=== PATIENT | male | born 1970 | race Caucasian/White ===

== ENCOUNTER 2019-04-28 12:26 | Inpatient (IN) | payer BC ==
[2019-04-28] MEDS ORDERED: Ketorolac 30 MG/ML SDV IVPUSH ONE (12:36)
[2019-04-28] MEDS ORDERED: Ondansetron 4 MG/2 ML SDV IVPUSH ONE (12:36)
[2019-04-28] MEDS: Sodium Chloride 0.9% 1,000 ML IV ONE ×2 (12:45→15:54)
[2019-04-28] MEDS ORDERED: Dicyclomine 10 MG Cap PO ONE (12:53)
--- NOTE | 2019-04-28 12:53 | EDM.PDOC ---
ED HPI GENERAL MEDICAL PROBLEM - General Chief Complaint: Gastrointestinal Problem Stated Complaint: VOMITING Time Seen by Provider: 04/28/19 12:28 Source of Information: Reports: Patient History Limitations: Reports: No Limitations - History of Present Illness INITIAL COMMENTS - FREE TEXT/NARRATIVE: HISTORY AND PHYSICAL: History of present illness: Patient is a 48-year-old male presents to the ED today with concern of generalized abdominal pain, diarrhea, and vomiting since last night. Patient states he's been awake all night with vomiting and diarrhea. Patient states he has an episode of either vomiting or diarrhea every 10-15 minutes and his diarrhea is watery. Patient states he's began to notice a small amount of blood in his diarrhea. Patient states he did eat at a potluck last night was over 100 people but does not know of any other ill contacts. Patient denies any health history or any other symptoms or concerns. Patient has a history of appendectomy but denies any other abdominal surgeries. Patient denies fever, chills, chest pain, shortness of breath, or cough. Denies headache, neck stiff ness, change in vision, syncope, or near syncope. Denies dysuria. Has not noted any blood in urine. Review of systems: As per history of present illness and below otherwise all systems reviewed and negative. Past medical history: As per history of present illness and as reviewed below otherwise noncontributory. Surgical history: As per history of present illness and as reviewed below otherwise noncontributory. Social history: See social history for further information Family history: As per history of present illness and as reviewed below otherwise noncontributory. Physical exam: General: Patient is alert, oriented, and in no acute distress. Patient laying comfortably on exam table. HEENT: Atraumatic, normocephalic, pupils equal and reactive bilaterally, negative for conjunctival pallor or scleral icterus, mucous membranes dry, TMs normal bilaterally, throat clear, neck supple, nontender, trachea midline. No drooling or trismus noted. No meningeal signs. No hot potato voice noted. Lungs: Clear to auscultation, breath sounds equal bilaterally, chest nontender. Heart: S1S2, regular rate and rhythm without overt murmur Abdomen: Soft, nondistended. Generalized mild-moderate discomfort with palpation of the abdomen. Negative for masses or hepatosplenomegaly. Negative for costovertebral tenderness. Pelvis: Stable nontender. Genitourinary: Deferred. Rectal: Deferred. Skin: Intact, warm, dry. No lesions or rashes noted. Extremities: Atraumatic, negative for cords or calf pain. Neurovascular unremarkable. Neuro: Awake, alert, oriented. Cranial nerves II through XII unremarkable. Cerebellum unremarkable. Motor and sensory unremarkable throughout. Exam nonfocal. Notes: Dr. Lowry, hospitalist, consulted on patient and will admit to inpatient. Voices understanding and is agreeable to plan of care. Denies any further questions or concerns at this time. Diagnostics: CBC, CMP, UA, lipase, stool study, although and parasite, C. difficile, abd/ pelvic CT Therapeutics: Saline, Zofran, Toradol, Bentyl Impression: Colitis Plan: Admit to inpatient to Dr. Lowry. Definitive disposition and diagnosis as appropriate pending reevaluation and review of above. Abdomen Pain Score (Numeric/FACES): 7 - Related Data Allergies Allergy/AdvReac Type Severity Reaction Status Date / Time No Known Allergies Allergy Verified 04/28/19 12:39 Home Meds: Home Meds . [No Known Home Meds] 04/28/19 [History] Past Medical History - Infectious Disease History Infectious Disease History: Reports: Chicken Pox - Past Surgical History GI Surgical History: Reports: Appendectomy Social & Family History - Family History Family Medical History: Noncontributory - Tobacco Use Smoking Status *Q: Never Smoker - Recreational Drug Use Recreational Drug Use: No ED ROS GENERAL - Review of Systems Review Of Systems: Comprehensive ROS is negative, except as noted in HPI. ED EXAM, GENERAL - Physical Exam Exam: See Below (see dictation) Course - Vital Signs Last Recorded V/S: Last Vital Signs Temp 97.2 F 04/28/19 12:37 Pulse 67 04/28/19 12:37 Resp 18 04/28/19 12:37 BP 139/77 04/28/19 12:37 Pulse Ox 96 04/28/19 12:37 - Orders/Labs/Meds Orders: Active Orders 24 hr Category Date Time Status Admission Status [Patient Status] [ADT] Stat ADT 04/28/19 14:41 Ordered Hemoccult [Fecal Occult Blood Collection] [RC] Care 04/28/19 12:41 Active ASDIRECTED C DIFFICILE AG/TOXIN W/REFLEX [RM] Stat Lab 04/28/19 12:36 Ordered CULTURE STOOL + CAMPY+SHIGATOX [RM] Stat Lab 04/28/19 12:36 Ordered OVA & PARASITES BY IMMUNOASSAY [MREF] Stat Lab 04/28/19 12:36 Ordered Ciprofloxacin in D5W [Cipro in D5W 400 MG/200 ML] 400 Med 04/28/19 14:32 Ordered mg Premix Bag 1 bag IV NOW metroNIDAZOLE/Normal Saline [Flagyl 500 MG in NS 100 ML Med 04/28/19 14:32 Ordered ] 500 mg Premix Bag 1 bag IV ONETIME Medication Orders Ciprofloxacin/Dextrose 400 mg/ (Premix) 200 mls @ 200 mls/hr IV NOW STA Stop: 04/28/19 15:31 Metronidazole 500 mg/ Premix 100 mls @ 100 mls/hr IV ONETIME ONE Stop: 04/28/19 15:31 Labs: Laboratory Tests 04/28/19 04/28/19 04/28/19 Range/Units 12:40 12:40 13:50 WBC 22.11 H (4.0-11.0) K/uL RBC 5.83 (4.50-5.90) M/uL Hgb 17.6 H (13.0-17.0) g/dL Hct 49.3 (38.0-50.0) % MCV 84.6 (80.0-98.0) fL MCH 30.2 (27.0-32.0) pg MCHC 35.7 (31.0-37.0) g/dL RDW Std Deviation 41.3 (28.0-62.0) fl RDW Coeff of Jose 14 (11.0-15.0) % Plt Count 219 (150-400) K/uL MPV 12.00 (7.40-12.00) fL Neut % (Auto) 89.5 H (48.0-80.0) % Lymph % (Auto) 6.7 L (16.0-40.0) % [place] % (Auto) 3.8 (0.0-15.0) % Eos % (Auto) 0.0 (0.0-7.0) % Baso % (Auto) 0.0 (0.0-1.5) % Neut # (Auto) 19.8 H (1.4-5.7) K/uL Lymph # (Auto) 1.5 (0.6-2.4) K/uL [place] # (Auto) 0.9 H (0.0-0.8) K/uL Eos # (Auto) 0.0 (0.0-0.7) K/uL Baso # (Auto) 0.0 (0.0-0.1) K/uL Nucleated RBC % 0.0 /100WBC Nucleated RBCs # 0 K/uL Sodium 139 (136-148) mmol/L Potassium 3.5 (3.5-5.1) mmol/L Chloride 102 (98-107) mmol/L Carbon Dioxide 25.1 (21.0-32.0) mmol/L BUN 13 (7.0-18.0) mg/dL Creatinine 1.0 (0.8-1.3) mg/dL Est Cr Clr Drug Dosing 94.29 mL/min Estimated GFR (MDRD) > 60.0 ml/min Glucose 148 H (74-106) mg/dL Calcium 9.5 (8.5-10.1) mg/dL Total Bilirubin 1.3 H (0.2-1.0) mg/dL AST 37 (15-37) IU/L ALT 76 H (14-63) IU/L Alkaline Phosphatase 78 (46-116) U/L Total Protein 8.0 (6.4-8.2) g/dL Albumin 4.1 (3.4-5.0) g/dL Globulin 3.9 (2.6-4.0) g/dL Albumin/Globulin Ratio 1.1 (0.9-1.6) Lipase 223 (73-393) U/L Urine Color DARK YELLOW Urine Appearance CLEAR Urine pH 5.5 (5.0-8.0) Ur Specific [place] >= 1.030 (1.001-1.035) Urine Protein NEGATIVE (NEGATIVE) mg/dL Urine Glucose (UA) NEGATIVE (NEGATIVE) mg/dL Urine Ketones 15 H (NEGATIVE) mg/dL Urine Occult Blood NEGATIVE (NEGATIVE) Urine Nitrite NEGATIVE (NEGATIVE) Urine Bilirubin NEGATIVE (NEGATIVE) Urine Urobilinogen 0.2 (<2.0) EU/dL Ur Leukocyte Esterase NEGATIVE (NEGATIVE) Meds: Medications Generic Name Dose Route Start Last Admin Trade Name Freq PRN Reason Stop Dose Admin Ciprofloxacin/Dextrose 400 mg/ 200 mls @ 200 mls/hr 04/28/19 14:32 Premix IV 04/28/19 15:31 NOW STA Metronidazole 500 mg/ Premix 100 mls @ 100 mls/hr 04/28/19 14:32 IV 04/28/19 15:31 ONETIME ONE Discontinued Medications Generic Name Dose Route Start Last Admin Trade Name Roberta PRN Reason Stop Dose Admin Dicyclomine HCl 10 mg 04/28/19 12:53 04/28/19 12:56 Bentyl PO 04/28/19 12:54 10 mg ONETIME ONE Administration Sodium Chloride 1,000 mls @ 999 mls/hr 04/28/19 12:36 04/28/19 12:45 Normal Saline IV 04/28/19 13:36 999 mls/hr STAT ONE Administration Ketorolac Tromethamine 30 mg 04/28/19 12:36 04/28/19 12:50 Toradol IVPUSH 04/28/19 12:37 30 mg ONETIME ONE Administration Ondansetron HCl 4 mg 04/28/19 12:36 04/28/19 12:50 Zofran IVPUSH 04/28/19 12:37 4 mg ONETIME ONE Administration Departure - Departure Time of Disposition: 14:42 Disposition: Admitted As Inpatient 67 Clinical Impression: Colitis - Discharge Information Referrals: PCP,None [Primary Care Provider] - Forms: ED Department Discharge - My Orders Last 24 Hours: My Active Orders 04/28/19 12:36 C DIFFICILE AG/TOXIN W/REFLEX [RM] Stat CULTURE STOOL + CAMPY+SHIGATOX [RM] Stat OVA & PARASITES BY IMMUNOASSAY [MREF] Stat 04/28/19 12:41 Hemoccult [Fecal Occult Blood Collection] [RC] ASDIRECTED 04/28/19 14:32 Ciprofloxacin in D5W [Cipro in D5W 400 MG/200 ML] 400 mg Premix Bag 1 bag IV NOW metroNIDAZOLE/Normal Saline [Flagyl 500 MG in NS 100 ML] 500 mg Premix Bag 1 bag IV ONETIME 04/28/19 14:41 Admission Status [Patient Status] [ADT] Stat - Assessment/Plan Last 24 Hours: My Active Orders 04/28/19 12:36 C DIFFICILE AG/TOXIN W/REFLEX [RM] Stat CULTURE STOOL + CAMPY+SHIGATOX [RM] Stat OVA & PARASITES BY IMMUNOASSAY [MREF] Stat 04/28/19 12:41 Hemoccult [Fecal Occult Blood Collection] [RC] ASDIRECTED 04/28/19 14:32 Ciprofloxacin in D5W [Cipro in D5W 400 MG/200 ML] 400 mg Premix Bag 1 bag IV NOW metroNIDAZOLE/Normal Saline [Flagyl 500 MG in NS 100 ML] 500 mg Premix Bag 1 bag IV ONETIME 04/28/19 14:41 Admission Status [Patient Status] [ADT] Stat
[2019-04-28 13:25] LABS: BLOOD UREA NITROGEN,BUN 13 mg/dL (7.0-18.0); CARBON DIOXIDE,CO2 25.1 mmol/L (21.0-32.0); CHLORIDE,CL 102 mmol/L (98-107); GLUCOSE RANDOM 148 mg/dL (74-106); LIPASE 223 U/L (73-393); POTASSIUM,K 3.5 mmol/L (3.5-5.1); SODIUM,NA 139 mmol/L (136-148)
--- NOTE | 2019-04-28 14:29 | CT ---
EXAM DATE: 04/28/19 PATIENT'S AGE: 48 CT abdomen and pelvis Technique: Multiple axial sections were obtained from above the dome of the diaphragm inferiorly through the pubic symphysis. Intravenous contrast was utilized. No oral contrast is present. Comparison: No prior abdominal imaging is available. Findings: Visualized lung bases show nothing acute. Fatty infiltration is seen throughout the liver. No focal abnormality is appreciated within the liver. Spleen appears within normal limits. Adrenal glands show no nodule. Pancreas appears within normal limits. Gallbladder contains no calcified gallstones. Kidneys show symmetric contrast enhancement without hydronephrosis or mass. Aorta shows no aneurysm. No retroperitoneal adenopathy is seen. Appendix not visualized. Surgical material is seen next to the cecum. No pelvic mass or adenopathy is seen. No free fluid or inflammatory change. There is some bowel wall thickening within the right colon and transverse colon compatible with a nonspecific colitis. Bone window settings were reviewed which shows mild compression deformities within the thoracic spine which is felt to be developmental. Minimal scattered degenerative change is seen within the spine. Impression: 1. Bowel wall thickening within portions of the transverse and right colon compatible with a nonspecific colitis. 2. Other findings as noted above which are felt to be nonacute and incidental. Diagnostic code #3 Report Signed by Proxy. SHEILA
[2019-04-28] MEDS ORDERED: metroNIDAZOLE/Normal Saline 500 MG in Premix Bag 1 BAG IV ONE (14:32)
[2019-04-28] MEDS ORDERED: Ciprofloxacin in D5W 400 MG in Premix Bag 1 BAG IV STA ×2 (14:32)
[2019-04-28] MEDS ORDERED: Morphine 2 MG/ML Syringe IVPUSH PRN (15:21)
[2019-04-28] MEDS ORDERED: Sodium Chloride 0.9% 1,000 ML IV SCH ×2 (15:30→16:30)
--- NOTE | 2019-04-28 15:34 | PCM.HP.2 ---
H&P History of Present Illness - General Date of Service: 04/28/19 Admit Problem/Dx: Admission Diagnosis/Problem Admission Diagnosis/Problem Colitis Source of Information: Patient History Limitations: Reports: No Limitations - History of Present Illness Initial Comments - Free Text/Narative: This 48 year old male with little significant pmh presented to the ED today with complaints of sudden abdominal pain, N/V, and diarrhea. he reports last evening he suddenly started having diffuse abdominal cramping, N/V and diarrhea. He reports the pain is not located to one spot, it is all over. It comes on suddenly lasts for 1 minute or so then settles down. He reports the pain is sharp and constant for that minute. He reports his stools are very watery with some noteable ignacio blood, but in very small amounts. Maybe a little mucous noted. He reports emesis is note only bile. He attempted to drink some tea this morning, but threw that up right away. He is not voiding much and it is very dark. He reports he ate at [employer] the other day and then last night he was with family at a gathering with a potluck style food. His sister, in the room with him, denies knowing of anyone else that is sick. No recent travel outside of the and no recent antibiotic use. He reports fevers and chills overnight. no chest pain or SOB. No headache, sinus congestion or neck pain. He denies any other medical history, No HTN, CAD or DM. He reports history of gastric ulcer as a child and appendectomy. He denies smoking or tobacco use, social alcohol use only and no recreational drug use. In the ED leukocytosis noted at 22,110, hgb 17.6 and Hct 49.6. UA negative. BMP ok, bilirubin 1.3, PRO093 AST [address] of abdomen revealed bowel thickening in the right colon and transverse colon consistent with non-specific colitis. he was treated with NS bolus in the ED along with Ciprofloxacin and Flagyl. He was also given Zofran and Bentyl. He will be admitted inpatient for colitis, dehydration and abdominal pain. Abdomen Pain Score (Numeric/FACES): 7 - Related Data Allergies/Adverse Reactions: Allergies Allergy/AdvReac Type Severity Reaction Status Date / Time No Known Allergies Allergy Verified 04/28/19 12:39 Home Medications: Home Meds . [No Known Home Meds] 04/28/19 [History] Past Medical History Cardiovascular History: Reports: None. Denies: Afib, CAD, Hypertension, ID Respiratory History: Reports: None. Denies: Asthma, COPD Gastrointestinal History: Reports: Other (See Below) (gastric ulcer as a child.) Genitourinary History: Reports: None. Denies: Chronic Renal Insuffiency Musculoskeletal History: Reports: None Psychiatric History: Reports: None Endocrine/Metabolic History: Reports: Obesity/BMI 30+ Oncologic (Cancer) History: Reports: None - Infectious Disease History Infectious Disease History: Reports: Chicken Pox - Past Surgical History GI Surgical History: Reports: Appendectomy Social & Family History - Family History Family Medical History: Noncontributory - Tobacco Use Smoking Status *Q: Never Smoker - Alcohol Use Alcohol Use Frequency: Socially - Recreational Drug Use Recreational Drug Use: No - Living Situation & Occupation Occupation: Employed H&P Review of Systems - Review of Systems: Review Of Systems: See Below General: Reports: Fever, Chills, Malaise, Fatigue HEENT: Reports: No Symptoms. Denies: Ear Pain, Headaches, Sinus Congestion, Vertigo Pulmonary: Reports: No Symptoms. Denies: Shortness of Breath Cardiovascular: Reports: No Symptoms. Denies: Chest Pain Gastrointestinal: Reports: Abdominal Pain, Bloody Stool, Diarrhea, Decreased Appetite, Nausea, Vomiting. Denies: Black Stool, Distension Genitourinary: Reports: No Symptoms. Denies: Dysuria, Frequency, Burning Musculoskeletal: Reports: No Symptoms Skin: Reports: No Symptoms Psychiatric: Reports: No Symptoms Neurological: Reports: No Symptoms Hematologic/Lymphatic: Reports: No Symptoms Immunologic: Reports: No Symptoms Exam - Exam Exam: See Below - Vital Signs Vital Signs: Last Vital Signs Temp 97.2 F 04/28/19 12:37 Pulse 71 04/28/19 14:53 Resp 18 04/28/19 14:53 BP 92/49 L 04/28/19 14:53 Pulse Ox 97 04/28/19 14:53 Weight: 115.666 kg - Exam General: Alert, Oriented, Cooperative HEENT: Conjunctiva Clear, Posterior Pharynx Clear. No: Mucosa Moist & [place] (dry ) Neck: Supple, Trachea Midline Lungs: Clear to Auscultation, Normal Respiratory Effort Cardiovascular: Regular Rate, Regular Rhythm GI/Abdominal Exam: Normal Bowel Sounds, Soft, Tender (scant tenderness diffusely , no localized pain.) Back Exam: Normal Inspection, Full Range of Motion Extremities: Normal Inspection, Normal Range of Motion, Non-Tender, No Pedal Edema Neuro Extensive - Mental Status: Alert, Oriented x3 Neuro Extensive - Motor, Sensory, Reflexes: CN II-XII Intact Psychiatric: Alert, Normal Affect, Normal Mood - Patient Data Lab Results Last 24 hrs: Laboratory Results - last 24 hr 04/28/19 04/28/19 04/28/19 Range/Units 12:40 12:40 13:50 WBC 22.11 H (4.0-11.0) K/uL RBC 5.83 (4.50-5.90) M/uL Hgb 17.6 H (13.0-17.0) g/dL Hct 49.3 (38.0-50.0) % MCV 84.6 (80.0-98.0) fL MCH 30.2 (27.0-32.0) pg MCHC 35.7 (31.0-37.0) g/dL RDW Std Deviation 41.3 (28.0-62.0) fl RDW Coeff of Jose 14 (11.0-15.0) % Plt Count 219 (150-400) K/uL MPV 12.00 (7.40-12.00) fL Neut % (Auto) 89.5 H (48.0-80.0) % Lymph % (Auto) 6.7 L (16.0-40.0) % [place] % (Auto) 3.8 (0.0-15.0) % Eos % (Auto) 0.0 (0.0-7.0) % Baso % (Auto) 0.0 (0.0-1.5) % Neut # (Auto) 19.8 H (1.4-5.7) K/uL Lymph # (Auto) 1.5 (0.6-2.4) K/uL [place] # (Auto) 0.9 H (0.0-0.8) K/uL Eos # (Auto) 0.0 (0.0-0.7) K/uL Baso # (Auto) 0.0 (0.0-0.1) K/uL Nucleated RBC % 0.0 /100WBC Nucleated RBCs # 0 K/uL Sodium 139 (136-148) mmol/L Potassium 3.5 (3.5-5.1) mmol/L Chloride 102 (98-107) mmol/L Carbon Dioxide 25.1 (21.0-32.0) mmol/L BUN 13 (7.0-18.0) mg/dL Creatinine 1.0 (0.8-1.3) mg/dL Est Cr Clr Drug Dosing 94.29 mL/min Estimated GFR (MDRD) > 60.0 ml/min Glucose 148 H (74-106) mg/dL Calcium 9.5 (8.5-10.1) mg/dL Total Bilirubin 1.3 H (0.2-1.0) mg/dL AST 37 (15-37) IU/L ALT 76 H (14-63) IU/L Alkaline Phosphatase 78 (46-116) U/L Total Protein 8.0 (6.4-8.2) g/dL Albumin 4.1 (3.4-5.0) g/dL Globulin 3.9 (2.6-4.0) g/dL Albumin/Globulin Ratio 1.1 (0.9-1.6) Lipase 223 (73-393) U/L Urine Color DARK YELLOW Urine Appearance CLEAR Urine pH 5.5 (5.0-8.0) Ur Specific [place] >= 1.030 (1.001-1.035) Urine Protein NEGATIVE (NEGATIVE) mg/dL Urine Glucose (UA) NEGATIVE (NEGATIVE) mg/dL Urine Ketones 15 H (NEGATIVE) mg/dL Urine Occult Blood NEGATIVE (NEGATIVE) Urine Nitrite NEGATIVE (NEGATIVE) Urine Bilirubin NEGATIVE (NEGATIVE) Urine Urobilinogen 0.2 (<2.0) EU/dL Ur Leukocyte Esterase NEGATIVE (NEGATIVE) Result Diagrams: 04/28/19 12:40 04/28/19 12:40 *Q Meaningful Use (ADM) - VTE *Q VTE Pharmacological Contraindications *Q: Risk of Bleeding - Problem List (1) Colitis SNOMED Code(s): 29712153 ICD Code: K52.9 - NONINFECTIVE GASTROENTERITIS AND COLITIS, UNSPECIFIED Status: Acute Current Visit: Yes (2) Dehydration SNOMED Code(s): 53886358 ICD Code: E86.0 - DEHYDRATION Status: Acute Current Visit: Yes (3) Abdominal pain SNOMED Code(s): 54769998 ICD Code: R10.9 - UNSPECIFIED ABDOMINAL PAIN Status: Acute Current Visit : Yes Qualifiers: Abdominal location: generalized Qualified Code(s): R10.84 - Generalized abdominal pain Problem List Initiated/Reviewed/Updated: Yes Orders Last 24hrs: Active Orders 24 hr Category Date Time Status Admission Status [Patient Status] [ADT] Stat ADT 04/28/19 14:41 Active Antiembolic Devices [RC] PER UNIT ROUTINE Care 04/28/19 15:22 Ordered Height and Weight [RC] DAILY Care 04/28/19 15:21 Ordered Hemoccult [Fecal Occult Blood Collection] [RC] Care 04/28/19 12:41 Active ASDIRECTED Oxygen Therapy [RC] PRN Care 04/28/19 15:22 Ordered Up With Assistance [RC] ASDIRECTED Care 04/28/19 15:21 Ordered VTE/DVT Education [RC] PER UNIT ROUTINE Care 04/28/19 15:22 Ordered Vital Signs [RC] Q4H Care 04/28/19 15:22 Ordered NPO [Nothing Per Oral Diet] [DIET] Diet 04/28/19 Dinner Ordered C DIFFICILE AG/TOXIN W/REFLEX [RM] Stat Lab 04/28/19 12:36 Ordered CBC WITH AUTO DIFF [HEME] AM Lab 04/29/19 05:11 Ordered COMPREHENSIVE METABOLIC PN,CMP [CHEM] AM Lab 04/29/19 05:11 Ordered CULTURE STOOL + CAMPY+SHIGATOX [RM] Stat Lab 04/28/19 12:36 Ordered MAGNESIUM [CHEM] Stat Lab 04/28/19 15:21 Ordered OVA & PARASITES BY IMMUNOASSAY [MREF] Stat Lab 04/28/19 12:36 Ordered Ciprofloxacin in D5W [Cipro in D5W 400 MG/200 ML] 400 Med 04/28/19 14:32 Active mg Premix Bag 1 bag IV NOW Ciprofloxacin in D5W [Cipro in D5W 400 MG/200 ML] 400 Med 04/29/19 02:00 Ordered mg Premix Bag 1 bag IV Q12H Lactated Ringers [Ringers, Lactated] 1,000 ml Med 04/28/19 15:30 Ordered IV Q8H Morphine Med 04/28/19 15:21 Ordered 2 mg IVPUSH Q2H PRN Ondansetron [Zofran] Med 04/28/19 15:21 Ordered 4 mg IVPUSH Q4H PRN Sodium Chloride 0.9% [Normal Saline] 1,000 ml Med 04/28/19 15:30 Ordered IV BOLUS metroNIDAZOLE/Normal Saline [Flagyl 500 MG in NS 100 ML Med 04/28/19 14:32 Active ] 500 mg Premix Bag 1 bag IV ONETIME metroNIDAZOLE/Normal Saline [Flagyl 500 MG in NS 100 ML Med 04/28/19 22:00 Ordered ] 500 mg Premix Bag 1 bag IV QID Sequential Compression Device [OM.PC] Per Unit Routine Oth 04/28/19 15:22 Ordered Resuscitation Status Routine Resus Stat 04/28/19 15:21 Ordered Medication Orders Ciprofloxacin/Dextrose 400 mg/ (Premix) 200 mls @ 200 mls/hr IV NOW STA Stop: 04/28/19 15:31 Last Admin: 04/28/19 14:48 Dose: 200 mls/hr Metronidazole 500 mg/ Premix 100 mls @ 100 mls/hr IV ONETIME ONE Stop: 04/28/19 15:31 Lactated Ringer's (Ringers, Lactated) 1,000 mls @ 125 mls/hr IV Q8H GLORIA Sodium Chloride (Normal Saline) 1,000 mls @ 999 mls/hr IV BOLUS GLORIA Stop: 04/28/19 16:31 Ciprofloxacin/Dextrose 400 mg/ (Premix) 200 mls @ 200 mls/hr IV Q12H GLORIA Metronidazole 500 mg/ Premix 100 mls @ 100 mls/hr IV QID GLORIA Morphine Sulfate (Morphine) 2 mg IVPUSH Q2H PRN PRN Reason: Pain (severe 7-10) Ondansetron HCl (Zofran) 4 mg IVPUSH Q4H PRN PRN Reason: Nausea Assessment/Plan Comment:: This 48 year old male admitted for colitis, dehydration and abdominal pain 1. Colitis: Will continue Ciprofloxacin and Flagyl. Obtain stool studies to rule out infectious cause to colitis. Did recommend outpatient follow up with colonoscopy. No hx of IBD. Morphine for pain PRN. Zofran added as well if needed. Bowel rest for now, ice chips ok. 2. Dehydration: secondary to above. Will give another 1 l NS bolus now, then continue LR 125 ml overnight and monitor labwork in am. VTE prophylaxis: Due to blood noted in stool, SCDs only for now. Dispo: 2-3 days pending improvement. - Mortality Measure Prognosis:: Good
[2019-04-28] MEDS ORDERED: FLU Vacc QS2019-20(6MOS+)/PF 60 MCG/0.5 ML SYRINGE IM ONE (16:00)
[2019-04-28] MEDS ORDERED: Promethazine 25 MG/ML SDV IM PRN (16:22)
[2019-04-28] MEDS ORDERED: Sodium Chloride 0.9% 1,000 ML IV STA (16:49)
[2019-04-28] MEDS: Lactated Ringers 1,000 ML IV SCH (17:59)
[2019-04-28] MEDS ORDERED: Iopamidol 755 MG/ML 500 ML Multipack Bottle IVPUSH STA (18:22)
[2019-04-28] MEDS: Morphine 4 MG/ML Syringe IVPUSH PRN ×2 (19:53→21:55)
[2019-04-28] MEDS: Ondansetron 4 MG/2 ML SDV IVPUSH PRN (19:53)
[2019-04-28] MEDS: metroNIDAZOLE/Normal Saline 500 MG in Premix Bag 1 BAG IV SCH (21:38)
[2019-04-29] MEDS: metroNIDAZOLE/Normal Saline 500 MG in Premix Bag 1 BAG IV SCH ×5 (00:28→23:47)
[2019-04-29] MEDS: Morphine 4 MG/ML Syringe IVPUSH PRN ×7 (00:40→21:40)
[2019-04-29] MEDS: Ondansetron 4 MG/2 ML SDV IVPUSH PRN (00:45)
[2019-04-29] MEDS: Ciprofloxacin in D5W 400 MG in Premix Bag 1 BAG IV SCH ×4 (02:05→13:05)
[2019-04-29] MEDS: Lactated Ringers 1,000 ML IV SCH ×3 (04:23→15:33)
[2019-04-29 05:59] LABS: BLOOD UREA NITROGEN,BUN 11 mg/dL (7.0-18.0); CARBON DIOXIDE,CO2 27.1 mmol/L (21.0-32.0); CHLORIDE,CL 105 mmol/L (98-107); GLUCOSE RANDOM 117 mg/dL (74-106); POTASSIUM,K 3.3 mmol/L (3.5-5.1); SODIUM,NA 143 mmol/L (136-148)
--- NOTE | 2019-04-29 08:11 | PCM.PN ---
- General Info Date of Service: 04/29/19 Admission Dx/Problem (Free Text): Admission Diagnosis/Problem Admission Diagnosis/Problem Colitis Subjective Update: Feeling improved somewhat, still having abdominal cramping but less often. Had small blood stool this morning. No chest pain or SOB. Getting hungry - Review of Systems General: Reports: No Symptoms HEENT: Reports: No Symptoms Pulmonary: Reports: No Symptoms. Denies: Shortness of Breath Cardiovascular: Reports: No Symptoms. Denies: Chest Pain Gastrointestinal: Reports: Abdominal Pain, Melena, Nausea Genitourinary: Reports: No Symptoms. Denies: Dysuria, Frequency Musculoskeletal: Reports: No Symptoms Skin: Reports: No Symptoms Neurological: Reports: No Symptoms Psychiatric: Reports: No Symptoms - Patient Data Vitals - Most Recent: Last Vital Signs Temp 97.6 F 04/29/19 08:00 Pulse 56 L 04/29/19 08:00 Resp 16 04/29/19 08:00 BP 117/75 04/29/19 08:00 Pulse Ox 95 04/29/19 08:00 Weight - Most Recent: 119.658 kg I&O - Last 24 Hours: Intake & Output 04/28/19 04/29/19 04/29/19 22:59 06:59 14:59 Intake Total 1200 1330 Output Total 500 Balance 1200 830 Lab Results Last 24 Hours: Laboratory Results - last 24 hr 04/28/19 04/28/19 04/28/19 Range/Units 12:40 12:40 12:40 WBC 22.11 H (4.0-11.0) K/uL RBC 5.83 (4.50-5.90) M/uL Hgb 17.6 H (13.0-17.0) g/dL Hct 49.3 (38.0-50.0) % MCV 84.6 (80.0-98.0) fL MCH 30.2 (27.0-32.0) pg MCHC 35.7 (31.0-37.0) g/dL RDW Std Deviation 41.3 (28.0-62.0) fl RDW Coeff of Jose 14 (11.0-15.0) % Plt Count 219 (150-400) K/uL MPV 12.00 (7.40-12.00) fL Neut % (Auto) 89.5 H (48.0-80.0) % Lymph % (Auto) 6.7 L (16.0-40.0) % [place] % (Auto) 3.8 (0.0-15.0) % Eos % (Auto) 0.0 (0.0-7.0) % Baso % (Auto) 0.0 (0.0-1.5) % Neut # (Auto) 19.8 H (1.4-5.7) K/uL Lymph # (Auto) 1.5 (0.6-2.4) K/uL [place] # (Auto) 0.9 H (0.0-0.8) K/uL Eos # (Auto) 0.0 (0.0-0.7) K/uL Baso # (Auto) 0.0 (0.0-0.1) K/uL Nucleated RBC % 0.0 /100WBC Nucleated RBCs # 0 K/uL ESR (0-14) mm/hr Sodium 139 (136-148) mmol/L Potassium 3.5 (3.5-5.1) mmol/L Chloride 102 (98-107) mmol/L Carbon Dioxide 25.1 (21.0-32.0) mmol/L BUN 13 (7.0-18.0) mg/dL Creatinine 1.0 (0.8-1.3) mg/dL Est Cr Clr Drug Dosing 94.29 mL/min Estimated GFR (MDRD) > 60.0 ml/min Glucose 148 H (74-106) mg/dL Calcium 9.5 (8.5-10.1) mg/dL Magnesium 1.8 (1.8-2.4) mg/dL Total Bilirubin 1.3 H (0.2-1.0) mg/dL AST 37 (15-37) IU/L ALT 76 H (14-63) IU/L Alkaline Phosphatase 78 (46-116) U/L C-Reactive Protein (0.00-0.90) mg/dL Total Protein 8.0 (6.4-8.2) g/dL Albumin 4.1 (3.4-5.0) g/dL Globulin 3.9 (2.6-4.0) g/dL Albumin/Globulin Ratio 1.1 (0.9-1.6) Lipase 223 (73-393) U/L Urine Color Urine Appearance Urine pH (5.0-8.0) Ur Specific [place] (1.001-1.035) Urine Protein (NEGATIVE) mg/dL Urine Glucose (UA) (NEGATIVE) mg/dL Urine Ketones (NEGATIVE) mg/dL Urine Occult Blood (NEGATIVE) Urine Nitrite (NEGATIVE) Urine Bilirubin (NEGATIVE) Urine Urobilinogen (<2.0) EU/dL Ur Leukocyte Esterase (NEGATIVE) 04/28/19 04/28/19 04/28/19 Range/Units 12:40 12:40 13:50 WBC (4.0-11.0) K/uL RBC (4.50-5.90) M/uL Hgb (13.0-17.0) g/dL Hct (38.0-50.0) % MCV (80.0-98.0) fL MCH (27.0-32.0) pg MCHC (31.0-37.0) g/dL RDW Std Deviation (28.0-62.0) fl RDW Coeff of Jose (11.0-15.0) % Plt Count (150-400) K/uL MPV (7.40-12.00) fL Neut % (Auto) (48.0-80.0) % Lymph % (Auto) (16.0-40.0) % [place] % (Auto) (0.0-15.0) % Eos % (Auto) (0.0-7.0) % Baso % (Auto) (0.0-1.5) % Neut # (Auto) (1.4-5.7) K/uL Lymph # (Auto) (0.6-2.4) K/uL [place] # (Auto) (0.0-0.8) K/uL Eos # (Auto) (0.0-0.7) K/uL Baso # (Auto) (0.0-0.1) K/uL Nucleated RBC % /100WBC Nucleated RBCs # K/uL ESR 1 (0-14) mm/hr Sodium (136-148) mmol/L Potassium (3.5-5.1) mmol/L Chloride (98-107) mmol/L Carbon Dioxide (21.0-32.0) mmol/L BUN (7.0-18.0) mg/dL Creatinine (0.8-1.3) mg/dL Est Cr Clr Drug Dosing mL/min Estimated GFR (MDRD) ml/min Glucose (74-106) mg/dL Calcium (8.5-10.1) mg/dL Magnesium (1.8-2.4) mg/dL Total Bilirubin (0.2-1.0) mg/dL AST (15-37) IU/L ALT (14-63) IU/L Alkaline Phosphatase (46-116) U/L C-Reactive Protein 3.30 H (0.00-0.90) mg/dL Total Protein (6.4-8.2) g/dL Albumin (3.4-5.0) g/dL Globulin (2.6-4.0) g/dL Albumin/Globulin Ratio (0.9-1.6) Lipase (73-393) U/L Urine Color DARK YELLOW Urine Appearance CLEAR Urine pH 5.5 (5.0-8.0) Ur Specific [place] >= 1.030 (1.001-1.035) Urine Protein NEGATIVE (NEGATIVE) mg/dL Urine Glucose (UA) NEGATIVE (NEGATIVE) mg/dL Urine Ketones 15 H (NEGATIVE) mg/dL Urine Occult Blood NEGATIVE (NEGATIVE) Urine Nitrite NEGATIVE (NEGATIVE) Urine Bilirubin NEGATIVE (NEGATIVE) Urine Urobilinogen 0.2 (<2.0) EU/dL Ur Leukocyte Esterase NEGATIVE (NEGATIVE) 04/29/19 04/29/19 Range/Units 05:30 05:30 WBC 16.34 H (4.0-11.0) K/uL RBC 5.02 (4.50-5.90) M/uL Hgb 14.8 (13.0-17.0) g/dL Hct 43.4 (38.0-50.0) % MCV 86.5 (80.0-98.0) fL MCH 29.5 (27.0-32.0) pg MCHC 34.1 (31.0-37.0) g/dL RDW Std Deviation 43.2 (28.0-62.0) fl RDW Coeff of Jose 14 (11.0-15.0) % Plt Count 184 (150-400) K/uL MPV 11.90 (7.40-12.00) fL Neut % (Auto) 75.0 (48.0-80.0) % Lymph % (Auto) 16.7 (16.0-40.0) % [place] % (Auto) 7.8 (0.0-15.0) % Eos % (Auto) 0.4 (0.0-7.0) % Baso % (Auto) 0.1 (0.0-1.5) % Neut # (Auto) 12.3 H (1.4-5.7) K/uL Lymph # (Auto) 2.7 H (0.6-2.4) K/uL [place] # (Auto) 1.3 H (0.0-0.8) K/uL Eos # (Auto) 0.1 (0.0-0.7) K/uL Baso # (Auto) 0.0 (0.0-0.1) K/uL Nucleated RBC % 0.0 /100WBC Nucleated RBCs # 0 K/uL ESR (0-14) mm/hr Sodium 143 (136-148) mmol/L Potassium 3.3 L (3.5-5.1) mmol/L Chloride 105 (98-107) mmol/L Carbon Dioxide 27.1 (21.0-32.0) mmol/L BUN 11 (7.0-18.0) mg/dL Creatinine 1.0 (0.8-1.3) mg/dL Est Cr Clr Drug Dosing 94.52 mL/min Estimated GFR (MDRD) > 60.0 ml/min Glucose 117 H (74-106) mg/dL Calcium 7.7 L (8.5-10.1) mg/dL Magnesium (1.8-2.4) mg/dL Total Bilirubin 0.6 (0.2-1.0) mg/dL AST 28 (15-37) IU/L ALT 58 (14-63) IU/L Alkaline Phosphatase 46 (46-116) U/L C-Reactive Protein (0.00-0.90) mg/dL Total Protein 6.0 L (6.4-8.2) g/dL Albumin 3.0 L (3.4-5.0) g/dL Globulin 3.0 (2.6-4.0) g/dL Albumin/Globulin Ratio 1.0 (0.9-1.6) Lipase (73-393) U/L Urine Color Urine Appearance Urine pH (5.0-8.0) Ur Specific [place] (1.001-1.035) Urine Protein (NEGATIVE) mg/dL Urine Glucose (UA) (NEGATIVE) mg/dL Urine Ketones (NEGATIVE) mg/dL Urine Occult Blood (NEGATIVE) Urine Nitrite (NEGATIVE) Urine Bilirubin (NEGATIVE) Urine Urobilinogen (<2.0) EU/dL Ur Leukocyte Esterase (NEGATIVE) Luis Results Last 24 Hours: Microbiology 04/28/19 21:45 Campylobacter Antigen Assay - Final Stool / Feces NEGATIVE CAMPYLOBACTER AG REFERENCE RANGE: NEGATIVE C. difficile Antigen & Toxins A,B - Final 04/28/19 21:45 Stool Occult Blood (LUIS) - Final Stool / Feces POSITIVE OCCULT BLOOD REFERENCE RANGE: NEGATIVE Med Orders - Current: Current Medications Ciprofloxacin/Dextrose 400 mg/ (Premix) 200 mls @ 200 mls/hr IV Q12H [facility] Last Admin: 04/29/19 02:05 Dose: 200 mls/hr Metronidazole 500 mg/ Premix 100 mls @ 100 mls/hr IV QID GLORIA Last Admin: 04/29/19 05:14 Dose: 100 mls/hr Lactated Ringer's (Ringers, Lactated) 1,000 mls @ 125 mls/hr IV .Q8H GLORIA Morphine Sulfate (Morphine) 3 mg IVPUSH Q2H PRN PRN Reason: Pain (severe 7-10) Last Admin: 04/29/19 07:25 Dose: 3 mg Ondansetron HCl (Zofran) 4 mg IVPUSH Q4H PRN PRN Reason: Nausea Last Admin: 04/29/19 00:45 Dose: 4 mg Promethazine HCl (Phenergan) 25 mg IM Q6H PRN PRN Reason: Nausea Last Admin: 04/28/19 21:33 Dose: 25 mg Discontinued Medications Dicyclomine HCl (Bentyl) 10 mg PO ONETIME ONE Stop: 04/28/19 12:54 Last Admin: 04/28/19 12:56 Dose: 10 mg Sodium Chloride (Normal Saline) 1,000 mls @ 999 mls/hr IV STAT ONE Stop: 04/28/19 13:36 Last Admin: 04/28/19 15:54 Dose: 899 mls/hr Ciprofloxacin/Dextrose 400 mg/ (Premix) 200 mls @ 200 mls/hr IV NOW STA Stop: 04/28/19 15:31 Last Admin: 04/28/19 14:48 Dose: 200 mls/hr Metronidazole 500 mg/ Premix 100 mls @ 100 mls/hr IV ONETIME ONE Stop: 04/28/19 15:31 Last Admin: 04/28/19 15:55 Dose: 100 mls/hr Lactated Ringer's (Ringers, Lactated) 1,000 mls @ 125 mls/hr IV Q8H GLORIA Last Admin: 04/29/19 07:44 Dose: Not Given Sodium Chloride (Normal Saline) 1,000 mls @ 999 mls/hr IV BOLUS GLORIA Stop: 04/28/19 16:31 Sodium Chloride (Normal Saline) 1,000 mls @ 999 mls/hr IV BOLUS GLORIA Stop: 04/28/19 17:31 Sodium Chloride (Normal Saline) 1,000 mls @ 999 mls/hr IV BOLUS STA Stop: 04/28/19 17:49 Last Admin: 04/28/19 16:51 Dose: Not Given Influenza Virus Vaccine (Pharmacy To Dose - Influenza Vaccine) 1 each IM ONETIME ONE Stop: 04/28/19 15:42 Last Admin: 04/28/19 20:01 Dose: Not Given Iopamidol (Isovue Multipack-370 (76%)) 100 ml IVPUSH ONETIME STA Stop: 04/28/19 18:23 Last Admin: 04/28/19 18:23 Dose: 100 ml Ketorolac Tromethamine (Toradol) 30 mg IVPUSH ONETIME ONE Stop: 04/28/19 12:37 Last Admin: 04/28/19 12:50 Dose: 30 mg Morphine Sulfate (Morphine) 2 mg IVPUSH Q2H PRN PRN Reason: Pain (severe 7-10) Last Admin: 04/28/19 16:00 Dose: 2 mg Ondansetron HCl (Zofran) 4 mg IVPUSH ONETIME ONE Stop: 04/28/19 12:37 Last Admin: 04/28/19 12:50 Dose: 4 mg - Exam General: Alert, Oriented, Cooperative Lungs: Clear to Auscultation, Normal Respiratory Effort Cardiovascular: Regular Rate, Regular Rhythm GI/Abdominal Exam: Normal Bowel Sounds, Soft, Tender (deep palpation to R) Extremities: Normal Inspection, Normal Range of Motion, Non-Tender, No Pedal Edema Neurological: No New Focal Deficit Psy/Mental Status: Alert, Normal Affect, Normal Mood - Problem List & Annotations (1) Colitis SNOMED Code(s): 44690949 Code(s): K52.9 - NONINFECTIVE GASTROENTERITIS AND COLITIS, UNSPECIFIED Status: Acute Current Visit: Yes (2) Dehydration SNOMED Code(s): 20062792 Code(s): E86.0 - DEHYDRATION Status: Acute Current Visit: Yes (3) Abdominal pain SNOMED Code(s): 30191909 Code(s): R10.9 - UNSPECIFIED ABDOMINAL PAIN Status: Acute Current Visit: Yes Qualifiers: Abdominal location: generalized Qualified Code(s): R10.84 - Generalized abdominal pain - Problem List Review Problem List Initiated/Reviewed/Updated: Yes - My Orders Last 24 Hours: My Active Orders 04/28/19 15:21 Height and Weight [RC] DAILY Up With Assistance [RC] ASDIRECTED Ondansetron [Zofran] 4 mg IVPUSH Q4H PRN Resuscitation Status Routine 04/28/19 15:22 Antiembolic Devices [RC] PER UNIT ROUTINE Oxygen Therapy [RC] PRN VTE/DVT Education [RC] PER UNIT ROUTINE Vital Signs [RC] Q4H Sequential Compression Device [OM.PC] Per Unit Routine 04/28/19 16:22 Promethazine [Phenergan] 25 mg IM Q6H PRN 04/28/19 16:23 Morphine 3 mg IVPUSH Q2H PRN 04/28/19 22:00 metroNIDAZOLE/Normal Saline [Flagyl 500 MG in NS 100 ML] 500 mg Premix Bag 1 bag IV QID 04/28/19 Dinner NPO [Nothing Per Oral Diet] [DIET] 04/29/19 02:00 Ciprofloxacin in D5W [Cipro in D5W 400 MG/200 ML] 400 mg Premix Bag 1 bag IV Q12H 04/29/19 07:45 Lactated Ringers [Ringers, Lactated] 1,000 ml IV .Q8H 04/29/19 08:08 MAGNESIUM [CHEM] Routine - Plan Plan:: This 48 year old male admitted for colitis, dehydration and abdominal pain 1. Colitis: Improving slowly. Continue Ciprofloxacin and Flagyl. Stool studies negative for Cdif and campylobacter, + hemoccult. Morphine for pain PRN. Will add Hyomax SL for cramping pain. Zofran and Phenergan PRN. Advance diet to CL and monitor. Hgb decreased, likely dilutional, will monitor. Did recommend outpatient follow up with colonoscopy. 2. Dehydration: secondary to above. Continue LR 125 ml and monitor labwork in am. VTE prophylaxis: Due to blood noted in stool, SCDs only for now. Dispo: 2-3 days pending improvement.
[2019-04-29] MEDS ORDERED: Hyoscyamine 0.125 MG Tab.SL SL PRN (09:49)
[2019-04-30] MEDS: Lactated Ringers 1,000 ML IV SCH (01:32)
[2019-04-30] MEDS: Morphine 4 MG/ML Syringe IVPUSH PRN (01:38)
[2019-04-30] MEDS: Ciprofloxacin in D5W 400 MG in Premix Bag 1 BAG IV SCH ×2 (01:43)
[2019-04-30 05:53] LABS: BLOOD UREA NITROGEN,BUN 7 mg/dL (7.0-18.0); CARBON DIOXIDE,CO2 32.3 mmol/L (21.0-32.0); CHLORIDE,CL 106 mmol/L (98-107); GLUCOSE RANDOM 98 mg/dL (74-106); POTASSIUM,K 3.2 mmol/L (3.5-5.1); SODIUM,NA 142 mmol/L (136-148)
[2019-04-30] MEDS: metroNIDAZOLE/Normal Saline 500 MG in Premix Bag 1 BAG IV SCH (06:16)
[2019-04-30] MEDS ORDERED: Acetaminophen 325 MG Tab PO PRN (08:49)
[2019-04-30] MEDS ORDERED: Potassium Chloride 10 MEQ Tab.ER PO ONE (08:50)
[2019-04-30] MEDS ORDERED: Ciprofloxacin 500 MG Tab PO SCH (11:45)
--- NOTE | 2019-04-30 14:00 | PCM.DCSUM1 ---
Discharge Summary - Hospital Course Brief History: This 48 year old male with little significant pmh presented to the ED today with complaints of sudden abdominal pain, N/V, and diarrhea. he reports last evening he suddenly started having diffuse abdominal cramping, N/V and diarrhea. He reports the pain is not located to one spot, it is all over. It comes on suddenly lasts for 1 minute or so then settles down. He reports the pain is sharp and constant for that minute. He reports his stools are very watery with some noteable ignacio blood, but in very small amounts. Maybe a little mucous noted. He reports emesis is note only bile. He attempted to drink some tea this morning, but threw that up right away. He is not voiding much and it is very dark. He reports he ate at [employer] the other day and then last night he was with family at a gathering with a potluck style food. His sister, in the room with him, denies knowing of anyone else that is sick. No recent travel outside of the and no recent antibiotic use. He reports fevers and chills overnight. no chest pain or SOB. No headache, sinus congestion or neck pain. He denies any other medical history, No HTN, CAD or DM. He reports history of gastric ulcer as a child and appendectomy. He denies smoking or tobacco use, social alcohol use only and no recreational drug use. In the ED leukocytosis noted at 22,110, hgb 17.6 and Hct 49.6. UA negative. BMP ok, bilirubin 1.3, [id number] AST [address] of abdomen revealed bowel thickening in the right colon and transverse colon consistent with non-specific colitis. he was treated with NS bolus in the ED along with Ciprofloxacin and Flagyl. He was also given Zofran and Bentyl. He will be admitted inpatient for colitis, dehydration and abdominal pain. Diagnosis: Stroke: No - Discharge Data Discharge Date: 04/30/19 Discharge Disposition: Home, Self-Care 01 Condition: Stable - Referral to Home Health Primary Care Physician: PCP None - Discharge Diagnosis/Problem(s) (1) Colitis SNOMED Code(s): 24846705 ICD Code: K52.9 - NONINFECTIVE GASTROENTERITIS AND COLITIS, UNSPECIFIED Status: Acute Current Visit: Yes (2) Dehydration SNOMED Code(s): 95921586 ICD Code: E86.0 - DEHYDRATION Status: Acute Current Visit: Yes (3) Abdominal pain SNOMED Code(s): 25982096 ICD Code: R10.9 - UNSPECIFIED ABDOMINAL PAIN Status: Acute Current Visit : Yes Qualifiers: Abdominal location: generalized Qualified Code(s): R10.84 - Generalized abdominal pain - Patient Instructions Diet: GI Soft/Low Residue/Low Fiber (slowly avdvance to regular, avoid dairy) Activity: As Tolerated Showering/Bathing: May Shower Notify Provider of: Fever, Increased Pain, Swelling and Redness, Drainage, Nausea and/or Vomiting Other/Special Instructions: Follow up with primary provider at home in [place], have them arrange for colonoscopy for further evaluation. - Discharge Plan *PRESCRIPTION DRUG MONITORING PROGRAM REVIEWED*: Not Applicable *COPY OF PRESCRIPTION DRUG MONITORING REPORT IN PATIENT MAEAGN: Not Applicable Prescriptions/Med Rec: Ciprofloxacin [Ciprofloxacin HCl] 500 mg PO BID #13 tablet Home Medications: Home Meds Acetaminophen [Tylenol] 650 mg PO Q4H PRN tablet 04/30/19 [Rx] Ciprofloxacin [Ciprofloxacin HCl] 500 mg PO BID #13 tablet 04/30/19 [Rx] Oxygen Therapy Mode: Room Air Patient Handouts: Dehydration, Adult, [id number], Colitis, Ciprofloxacin tablets Referrals: Mary Jo Lyons PA [Phys[facility] [employer] [employer]] - 05/05/19 10:30 am - Discharge Summary/Plan Comment DC Time >30 min.: No Discharge Summary/Plan Comment: Admitting Diagnoses: Colitis Abdominal pain Dehydration Discharge Diagnoses: Colitis Abdominal pain Dehydration Curtis was admitted and treated for colitis with abdominal pain and notable dehydration. He was started on Cipro and Flagyl due to leukocytosis and colonic wall thickening on admission. He was noted to have some blood in his stools. Hgb remained stable and bloody diarrhea improved and has not had any for 1 day. He was hydrated with IVFs. Stool studies obtained but negative for infectious cause. Likely secondary to viral gastroenteritis. He is very eager to go home today. Triend soft diet and tolerated this well. No further stools today and pain is much improved. He will be discharged home today with Cipro for 1 more week. He is to follow up with PCP in [place] and recommended to have colonoscopy in 6 weeks or so. He is to return to the ED or clinic if concerns should arise. - General Info Date of Service: 04/30/19 - Review of Systems General: Reports: No Symptoms. Denies: Fever, Weakness, Fatigue Pulmonary: Reports: No Symptoms. Denies: Shortness of Breath Cardiovascular: Reports: No Symptoms. Denies: Chest Pain Gastrointestinal: Reports: No Symptoms. Denies: Abdominal Pain, Nausea, Vomiting Skin: Reports: No Symptoms Neurological: Reports: No Symptoms Psychiatric: Reports: No Symptoms - Patient Data Vitals - Most Recent: Last Vital Signs Temp 97.9 F 04/30/19 11:48 Pulse 73 04/30/19 11:48 Resp 16 04/30/19 11:48 BP 119/75 04/30/19 11:48 Pulse Ox 97 04/30/19 11:48 Weight - Most Recent: 119.658 kg I&O - Last 24 hours: Intake & Output 04/29/19 04/30/19 04/30/19 22:59 06:59 14:59 Intake Total 500 1890 400 Output Total 600 1700 Balance -100 190 400 Lab Results - Last 24 hrs: Laboratory Results - last 24 hr 04/30/19 04/30/19 Range/Units 05:20 05:20 WBC 12.21 H (4.0-11.0) K/uL RBC 4.88 (4.50-5.90) M/uL Hgb 14.2 (13.0-17.0) g/dL Hct 42.5 (38.0-50.0) % MCV 87.1 (80.0-98.0) fL MCH 29.1 (27.0-32.0) pg MCHC 33.4 (31.0-37.0) g/dL RDW Std Deviation 44.3 (28.0-62.0) fl RDW Coeff of Jose 14 (11.0-15.0) % Plt Count 127 L (150-400) K/uL MPV 12.60 H (7.40-12.00) fL Neut % (Auto) 69.9 (48.0-80.0) % Lymph % (Auto) 21.7 (16.0-40.0) % [place] % (Auto) 6.6 (0.0-15.0) % Eos % (Auto) 1.6 (0.0-7.0) % Baso % (Auto) 0.2 (0.0-1.5) % Neut # (Auto) 8.5 H (1.4-5.7) K/uL Lymph # (Auto) 2.7 H (0.6-2.4) K/uL [place] # (Auto) 0.8 (0.0-0.8) K/uL Eos # (Auto) 0.2 (0.0-0.7) K/uL Baso # (Auto) 0.0 (0.0-0.1) K/uL Nucleated RBC % 0.0 /100WBC Nucleated RBCs # 0 K/uL Sodium 142 (136-148) mmol/L Potassium 3.2 L (3.5-5.1) mmol/L Chloride 106 (98-107) mmol/L Carbon Dioxide 32.3 H (21.0-32.0) mmol/L BUN 7 (7.0-18.0) mg/dL Creatinine 1.1 (0.8-1.3) mg/dL Est Cr Clr Drug Dosing 85.93 mL/min Estimated GFR (MDRD) > 60.0 ml/min Glucose 98 (74-106) mg/dL Calcium 8.0 L (8.5-10.1) mg/dL LAZARO Results - Last 24 hrs: Microbiology 04/28/19 21:45 Stool Culture - Final Stool / Feces Campylobacter Antigen Assay - Final NEGATIVE CAMPYLOBACTER AG REFERENCE RANGE: NEGATIVE Shiga Toxin I - Final NEGATIVE FOR SHIGA TOXIN 1 REFERENCE RANGE: NEGATIVE Shiga Toxin II - Final NEGATIVE FOR SHIGA TOXIN 2 REFERENCE RANGE: NEGATIVE C. difficile Antigen & Toxins A,B - Final 04/28/19 21:45 Cryptosporidium/Giardia - Final Stool / Feces Med Orders - Current: Current Medications Acetaminophen (Tylenol) 650 mg PO Q4H PRN PRN Reason: Pain Last Admin: 04/30/19 09:40 Dose: 650 mg Ciprofloxacin (Ciprofloxacin Hcl) 500 mg PO BID GLORIA Last Admin: 04/30/19 12:27 Dose: 500 mg Hyoscyamine (Hyomax-Sl) 0.125 mg SL Q6H PRN PRN Reason: abdominal cramping Last Admin: 04/29/19 10:14 Dose: 0.125 mg Morphine Sulfate (Morphine) 3 mg IVPUSH Q2H PRN PRN Reason: Pain (severe 7-10) Last Admin: 04/30/19 01:38 Dose: 3 mg Ondansetron HCl (Zofran) 4 mg IVPUSH Q4H PRN PRN Reason: Nausea Last Admin: 04/29/19 00:45 Dose: 4 mg Promethazine HCl (Phenergan) 25 mg IM Q6H PRN PRN Reason: Nausea Last Admin: 04/28/19 21:33 Dose: 25 mg Discontinued Medications Dicyclomine HCl (Bentyl) 10 mg PO ONETIME ONE Stop: 04/28/19 12:54 Last Admin: 04/28/19 12:56 Dose: 10 mg Sodium Chloride (Normal Saline) 1,000 mls @ 999 mls/hr IV STAT ONE Stop: 04/28/19 13:36 Last Admin: 04/28/19 15:54 Dose: 899 mls/hr Ciprofloxacin/Dextrose 400 mg/ (Premix) 200 mls @ 200 mls/hr IV NOW STA Stop: 04/28/19 15:31 Last Admin: 04/28/19 14:48 Dose: 200 mls/hr Metronidazole 500 mg/ Premix 100 mls @ 100 mls/hr IV ONETIME ONE Stop: 04/28/19 15:31 Last Admin: 04/28/19 15:55 Dose: 100 mls/hr Lactated Ringer's (Ringers, Lactated) 1,000 mls @ 125 mls/hr IV Q8H [facility] Last Admin: 04/29/19 07:44 Dose: Not Given Sodium Chloride (Normal Saline) 1,000 mls @ 999 mls/hr IV BOLUS GLORIA Stop: 04/28/19 16:31 Ciprofloxacin/Dextrose 400 mg/ (Premix) 200 mls @ 200 mls/hr IV Q12H [facility] Last Admin: 04/30/19 01:43 Dose: 200 mls/hr Metronidazole 500 mg/ Premix 100 mls @ 100 mls/hr IV QID GLORIA Last Admin: 04/30/19 06:16 Dose: 100 mls/hr Sodium Chloride (Normal Saline) 1,000 mls @ 999 mls/hr IV BOLUS GLORIA Stop: 04/28/19 17:31 Sodium Chloride (Normal Saline) 1,000 mls @ 999 mls/hr IV BOLUS STA Stop: 04/28/19 17:49 Last Admin: 04/28/19 16:51 Dose: Not Given Lactated Ringer's (Ringers, Lactated) 1,000 mls @ 125 mls/hr IV .Q8H GLORIA Last Admin: 04/30/19 01:32 Dose: 125 mls/hr Influenza Virus Vaccine (Pharmacy To Dose - Influenza Vaccine) 1 each IM ONETIME ONE Stop: 04/28/19 15:42 Last Admin: 04/28/19 20:01 Dose: Not Given Iopamidol (Isovue Multipack-370 (76%)) 100 ml IVPUSH ONETIME STA Stop: 04/28/19 18:23 Last Admin: 04/28/19 18:23 Dose: 100 ml Ketorolac Tromethamine (Toradol) 30 mg IVPUSH ONETIME ONE Stop: 04/28/19 12:37 Last Admin: 04/28/19 12:50 Dose: 30 mg Morphine Sulfate (Morphine) 2 mg IVPUSH Q2H PRN PRN Reason: Pain (severe 7-10) Last Admin: 04/28/19 16:00 Dose: 2 mg Ondansetron HCl (Zofran) 4 mg IVPUSH ONETIME ONE Stop: 04/28/19 12:37 Last Admin: 04/28/19 12:50 Dose: 4 mg Potassium Chloride (Klor-Con 10) 40 meq PO ONETIME ONE Stop: 04/30/19 08:51 Last Admin: 04/30/19 09:46 Dose: 40 meq - Exam Neck: Reports: Supple Lungs: Reports: Clear to Auscultation, Normal Respiratory Effort Cardiovascular: Reports: Regular Rate, Regular Rhythm GI/Abdominal Exam: Normal Bowel Sounds, Soft, Tender (mild tenderness to R quadrant with deep palpation, but improved) *Q Meaningful Use (DIS) - VTE *Q VTE Pharmacological Contraindications *Q: Risk of Bleeding
[2019-04-30] MEDS ORDERED: FLU Vacc QS2019-20(6MOS+)/PF 60 MCG/0.5 ML SYRINGE IM ONE (14:45)
== END 2019-04-30 15:10 | disposition home or self-care (01) | DRG 249 ==
LOC: MW.ED 12:26 → MW.MS 14:41 → UNDOADMIN 14:50 → MW.MS 14:50
PROVIDERS: ADMIT Student in an Organized Health Care Education/Training Program; ATTEND Student in an Organized Health Care Education/Training Program
DX: A08.4 Viral intestinal infection, unspecified (principal); E86.0 Dehydration; E66.9 Obesity, unspecified; Z79.899 Other long term (current) drug therapy; Z90.49 Acquired absence of other specified parts of digestive tract; Z68.37 Body mass index [BMI] 37.0-37.9, adult
CPT/HCPCS: 36415; 74177; 74177-26; 80048; 80053; 81003; 82272; 83690; 83735; 85025; 85652; 86140; 87046; 87324; 87328; 87329; 87899; 90686; 96361; 96374; 96375; 99284; 99285-25; A9270-GY; G0008; J0744; J1885; J2270; J2405; J2550; J3490; J7030; J7120; Q9967